=== PATIENT | male | born 1970 | race Caucasian/White ===

== ENCOUNTER 2018-07-12 08:40 | Emergency (ER) | payer SELFPAY, OTHER ==
[2018-07-12 09:20] LABS: ADD MAN DIFF? NO
[2018-07-12] MEDS: ASPIRIN 325 MG TAB PO (09:21)
[2018-07-12] MEDS: NITROGLYCERIN (SL) 0.4 MG TAB SL ×2 (09:22→09:58)
[2018-07-12 09:29] LABS: WHITE BLOOD COUNT 8.5 10^3/ul (4.8-10.8)
[2018-07-12 09:29] LABS: BASOPHIL # 0.1 10^3/ul (0.0-0.1); BASOPHILS % 0.8 % (0.0-2.0); EOSINOPHILS # 0.1 10^3/ul (0.0-0.5); EOSINOPHILS % 0.9 % (0.0-7.0); HEMATOCRIT 45.2 % (42.0-52.0); HEMOGLOBIN 16.2 g/dl (14.0-18.0); LYMPHOCYTES # 1.9 10^3/ul (0.8-2.9); MEAN CORPUSCULAR HEMOGLOBIN 34.1 pg (29.0-33.0); MEAN CORPUSCULAR HGB CONC 35.8 g/dl (32.0-37.0); MEAN CORPUSCULAR VOLUME 95.2 fl (82.0-101.0); MEAN PLATELET VOLUME 12.1 fl (7.4-10.4); MONOCYTE # 0.8 10^3/ul (0.3-0.9); MONOCYTES % 9.1 % (0.0-11.0); NEUTROPHIL # 5.7 10^3/ul (1.6-7.5); PLATELET COUNT 145 10^3/UL (140-415); RED BLOOD COUNT 4.75 10^6/ul (4.70-6.10); RED CELL DISTRIBUTION WIDTH 11.6 % (11.5-14.5)
[2018-07-12 09:48] LABS: INR 0.92; PROTIME 12.4 Sec (11.9-14.9)
[2018-07-12 09:49] LABS: PARTIAL THROMBOPLASTIN TIME 27.9 Sec (23.0-35.0)
[2018-07-12 09:55] LABS: ALANINE AMINOTRANSFERASE 32 IU/L (13-69); ALBUMIN 4.2 g/dl (3.3-4.9); ALBUMIN/GLOBULIN RATIO 1.31; ALKALINE PHOSPHATASE 93 IU/L (42-121); ANION GAP 9 (5-13); ASPARTATE AMINO TRANSFERASE 36 IU/L (15-46); BILIRUBIN,INDIRECT 0.4 mg/dl (0-1.1); BILIRUBIN,TOTAL 0.4 mg/dl (0.2-1.3); BLOOD UREA NITROGEN 10 mg/dl (7-20); CALCIUM 8.7 mg/dl (8.4-10.2); CARBON DIOXIDE 25 mmol/L (21-31); CHLORIDE 106 mmol/L (97-110); CREATINE KINASE 107 IU/L (23-200); CREATININE 0.64 mg/dl (0.61-1.24); Estimated GFR > 60 mL/min (>60); GLUCOSE 105 mg/dl (70-220); POTASSIUM 3.9 mmol/L (3.5-5.1); SODIUM 140 mmol/L (135-144); TOTAL PROTEIN 7.4 g/dl (6.1-8.1); TRIGLYCERIDES 221 mg/dl (0-149)
[2018-07-12 10:07] LABS: D-DIMER 267.67 ng/ml (<460)
[2018-07-12 10:11] LABS: B-TYPE NATRIURETIC PEPTIDE 34 PG/ML (0-125); CK-MB 1.05 ng/ml (0.0-2.4); TROPONIN-I < 0.012 ng/ml (0.000-0.120)
[2018-07-12] MEDS ORDERED: HYDROCODONE/APAP (5/325) TAB PO (12:30)
[2018-07-12] MEDS ORDERED: ONDANSETRON 4 MG INJ IV (12:30)
[2018-07-12] MEDS ORDERED: DOCUSATE SODIUM 100 MG CAP PO (12:30)
[2018-07-12] MEDS ORDERED: NITROGLYCERIN (SL) 0.4 MG TAB SL (12:30)
[2018-07-12] MEDS ORDERED: MAGNESIUM HYDROXIDE 30ML CUP PO (12:30)
[2018-07-12] MEDS ORDERED: NACL 0.9% 3 ML SYG IV (12:30)
[2018-07-12] MEDS ORDERED: ACETAMINOPHEN 325 MG TAB PO (12:30)
[2018-07-12 13:42] LABS: CHOLESTEROL 213 mg/dl (100-200)
[2018-07-12 13:42] LABS: CHOL/HDL RATIO 3.6 RATIO; HDL CHOLESTEROL 59 mg/dl (27-67); LDL CHOLESTEROL,CALCULATED 109 mg/dl; TRIGLYCERIDES 224 mg/dl (0-149)
[2018-07-12 14:16] LABS: HEMOGLOBIN A1C 5.2 % (0-5.9)
[2018-07-13] MEDS ORDERED: PANTOPRAZOLE (EC) 40 MG TAB PO (06:00)
[2018-07-13] MEDS ORDERED: ENOXAPARIN 40 MG/0.4 ML SYG SC (09:00)
== END 2018-07-12 13:40 | disposition left against medical advice (07) ==
LOC: E/R 08:40
DX: R07.89 Other chest pain (principal)
CPT/HCPCS: 71045; 80053; 80061; 82550; 82553; 83036; 83880; 84443; 84478; 84484; 85025; 85378; 85610; 85730; 93005; 93306; 99285-25